=== PATIENT | female | born 1990 ===

== ENCOUNTER → 2022-11-24 11:55 | Outpatient (CLI) | payer OTHER, SELFPAY ==
--- NOTE | ~2022-11-24 | US_ITS ---
Pelvic ultrasound. Clinical History: Pelvic swelling Technique: Realtime transabdominal and transvaginal scanning of the pelvis was performed. Color flow Doppler and Doppler spectral analysis were performed. Findings: The uterus is anteverted. The endometrial stripe has a thickness of 4 mm. Small posterior intramural fibroid measures 1.1 cm. The right ovary measures 3.8 x 1.6 x 3.6 cm. No significant right ovarian or adnexal mass is seen. The left ovary measures 3.2 x 4.0 x 3.1 cm. No significant left ovarian or adnexal mass is seen. Vascular flow present in both ovaries on Doppler spectral analysis. There is no evidence of free fluid in the cul de sac. Impression: Small uterine fibroid, as above, otherwise unremarkable exam. Reviewed, dictated and finalized at [facility]. Impression: Small uterine fibroid, as above, otherwise unremarkable exam.
== END ==
PROVIDERS: PCP Nurse Practitioner; Visit Provider Nurse Practitioner
DX: D25.9 Leiomyoma of uterus, unspecified (principal)
CPT/HCPCS: 76830